=== PATIENT | male | born 1965 | race Caucasian/White ===

== ENCOUNTER 2020-10-27 08:43 | Outpatient (CLI) | payer BC, SELFPAY ==
[2020-10-27 09:21] LABS: Basophils Absolute Auto 0.1 K/mm3 (0.0-0.1); Basophils Percent Auto 1.2 % (0.2-1.2); Eosinophils Absolute Auto 0.1 K/mm3 (0-0.3); Eosinophils Percent Auto 2.2 % (0-4.4); Hematocrit 45.7 % (42.0-52.0); Hemoglobin 15.7 g/dL (14.0-18.0); Immature Granulocyte Absolute 0.02 K/mm3 (0.00-0.031); Immature Granulocyte Percent A 0.4 % (0-0.5); Lymphocytes Percent Auto 33.9 % (18.3-44.2); Mean Corpuscular HGB Conc 34.4 g/dl (32-36); Mean Corpuscular Hemoglobin 33.5 pg (26-34); Mean Corpuscular Volume 97.4 fl (80-100); Mean Platelet Volume 9.6 fl (7.4-10.4); Monocytes Absolute Auto 0.4 K/mm3 (0.1-0.6); Monocytes Percent Auto 8.2 % (2.6-8.5); Neutrophils Absolute Auto 2.7 K/mm3 (1.3-6.7); Neutrophils Percent Auto 54.1 % (45.5-73.1); Platelet Count Result 223 k/mm3 (150-375); Red Blood Count 4.69 M/mm3 (4.6-6.20); Red Cell Distribution Width 11.9 % (11.5-14.5)
[2020-10-27 09:25] LABS: Alanine Aminotransferase 40 U/L (4-50); Albumin Level 4.6 g/dL (3.5-5.1); Alkaline Phosphatase 75 U/L (38-126); Amylase 52 U/L (30-110); Anion Gap 7 mmol/L (8-16); Aspartate Amino Transferase 51 U/L (17-59); Bilirubin,Total 0.5 mg/dL (0.2-1.3); Blood Urea Nitrogen 11 mg/dL (9-20); Calcium 9.5 mg/dL (8.4-10.2); Carbon Dioxide 29 mmol/L (22-30); Chloride 105 mmol/L (98-107); Cholesterol 208 mg/dL (0-200); Estimated Glomerular Filt Rate > 60; Glucose 101 mg/dL (75-110); HDL Direct 47 mg/dL; Lipase 78 U/L (23-300); Potassium 4.3 mmol/L (3.4-5.0); Sodium 141 mmol/L (137-145); Triglycerides 270 mg/dL (<150)
[2020-10-27 09:36] LABS: LDL Cholesterol Direct 128 mg/dL
[2020-10-27 09:56] LABS: Prostate Specific Antigen 0.2 ng/mL (< OR = 4.0)
== END 2020-10-27 08:44 | disposition home or self-care (01) ==
LOC: ANHLAB 08:48
PROVIDERS: PCP Family Medicine; Visit Provider Physician Assistant Medical
DX: R10.13 Epigastric pain (principal); Z12.5 Encounter for screening for malignant neoplasm of prostate; Z13.220 Encounter for screening for lipoid disorders; Z80.0 Family history of malignant neoplasm of digestive organs
CPT/HCPCS: 36415; 80053; 80061; 82150; 83690; 84153; 85025; G0103

== ENCOUNTER → 2020-11-09 08:23 | Outpatient (CLI) | payer BC, SELFPAY ==
--- NOTE | ~2020-11-09 | US_ITS ---
EXAMINATION: US abdomen complete EXAM DATE: 11/09/2020 08:40 INDICATION: R10.13 - Epigastric pain. TECHNIQUE: Multiple grayscale and Doppler images of the complete abdomen were obtained (by a technolo gist who performed the scan) and subsequently reviewed. Comparison is made to prior examination from 09/09/2016. FINDINGS: The abdominal aorta is normal in caliber. Visualized portion IVC is patent. The pancreatic head a nd body are normal in appearance. The pancreatic tail is not visualized. There is echogenic liver parenchyma, hepatic steatosis. There are no focal liver lesions identified. There is no evidence of intrahepatic biliary duct dilation. Portal venous flow was seen in the he patopedal, normal direction and has normal Doppler waveform. Common bile duct measures 5 mm, which is normal. The gallbladder wall is normal in thickness, with ex pected amount of distention. No sonographic evidence of pericholecystic fluid. There is no cholelit hiases. Technologist performing exam reports patient did not demonstrate sonographic Maldonado's sign. Please note that this sign is less reliable in patients who have received pain medication. Right kidney: There is normal contour and echogenicity. It measures 11.8 x 5.3 x 5.2 centimeters. There are no focal renal lesions identified. There is no hydronephrosis. Left kidney: There is normal contour and echogenicity. It measures 10.8 x 6.2 x 5.4 centimeters. T here are no focal renal lesions identified. There is no hydronephrosis. The spleen measures 11.2 centimeters and is morphologically normal. IMPRESSION: 1. Hepatic steatosis. Reviewed, dictated and finalized at location A. E MAKER IMPRESSION: 1. Hepatic steatosis.
== END ==
PROVIDERS: PCP Family Medicine; Visit Provider Physician Assistant Medical
DX: R10.13 Epigastric pain (principal); K76.0 Fatty (change of) liver, not elsewhere classified
CPT/HCPCS: 76700

== ENCOUNTER 2020-12-19 16:31 | Outpatient (CLI) | payer BC, SELFPAY | END 2020-12-19 16:32 | disposition home or self-care (01) | LOC: ANHCOVIDVC 16:31 | PROVIDERS: PCP Family Medicine | DX: Z23 Encounter for immunization (principal) | CPT/HCPCS: 0001A; 91300 ==

== ENCOUNTER 2021-01-09 16:28 | Outpatient (CLI) | payer BC, SELFPAY | END 2021-01-09 16:29 | disposition home or self-care (01) | LOC: ANHCOVIDVC 16:28 | PROVIDERS: PCP Family Medicine | DX: Z23 Encounter for immunization (principal) | CPT/HCPCS: 0002A; 91300 ==

== ENCOUNTER → 2022-10-01 11:26 | Outpatient (CLI) | payer BC, SELFPAY ==
--- NOTE | ~2022-10-01 | XR_ITS ---
EXAMINATION: XR lumbar spine 6V w bending DATE: 10/01/2022 11:53 INDICATION: Other spondylosis with radiculopathy, lumbosacral region. TECHNIQUE: 8 views of lumbar spine standing including flexion and extension views were obtained. COMPARISON: Lumbar spine radiographs 12/30/2011 FINDINGS: There is 3 mm retrolisthesis of L2 on L3 and L3 on L4. Vertebral body heights are normal. T here is mildly decreased disc height at L2-L3 and L3-L4. There is no abnormal motion with flexion or extension. There is multilevel mild facet joint osteoarthritis. IMPRESSION: 1. Mild lumbar spondylosis. Reviewed, dictated and finalized at location A. [employer] PL[employer]ING MANAGER IMPRESSION: 1. Mild lumbar spondylosis.
== END ==
PROVIDERS: PCP Family Medicine; Visit Provider Family Medicine
DX: M47.27 Other spondylosis with radiculopathy, lumbosacral region (principal); M43.06 Spondylolysis, lumbar region
CPT/HCPCS: 72114

== ENCOUNTER → 2023-04-08 09:47 | Outpatient (CLI) | payer BC, SELFPAY ==
--- NOTE | ~2023-04-08 | MR_ITS ---
MRI of the lumbar spine Clinical History: Radiculopathy Technique: Axial T2-weighted images, and sagittal T1-weighted, T2-weighted, and and T2 fat-sat images were acquired. COMPARISON: 01/23/2012 Findings: No acute fracture seen. 2 mm retrolisthesis of L2 over L3 present. 4 mm retrolisthesis of L 3 over L4 present. There are reactive marrow signal changes due to degenerative disc change at the L2 -L3 and L3-L4 levels. At L1-L2, there is no disc bulge or herniation. There is mild facet joint hypertrophy. No spinal shauna l stenosis or neural foraminal narrowing. At L2-L3, there is minimal disc bulge and mild to moderate facet arthropathy. No central canal stenos is. There is mild bilateral neural foraminal narrowing. At L3-L4, there is disc bulge and mild to moderate facet arthropathy. There is no central canal steno sis. There is moderate to severe right neural foraminal narrowing, and moderate left neural foraminal narrowing. At L4-L5, there is mild diffuse disc bulge with mild facet arthropathy. No central canal stenosis. Th ere is severe bilateral neural foraminal narrowing. At L5-S1, there is minimal disc bulge. No central canal stenosis. There is moderate bilateral neural foraminal narrowing. Paravertebral soft tissues are unremarkable. Impression: Moderate degenerative spondylosis, with multilevel neural foraminal narrowing, as detailed above. 2 mm retrolisthesis of L2 over L3. 4 mm retrolisthesis of L3 over L4. Reviewed, dictated and finalized at [facility]. Impression: Moderate degenerative spondylosis, with multilevel neural foraminal narrowing, as detailed above. 2 mm retrolisthesis of L2 over L3. 4 mm retrolisthesis of L3 over L4.
== END ==
PROVIDERS: PCP Family Medicine
DX: M47.27 Other spondylosis with radiculopathy, lumbosacral region (principal); M43.16 Spondylolisthesis, lumbar region
CPT/HCPCS: 72148

== ENCOUNTER → 2023-07-06 07:07 | Outpatient (CLI) | payer BC, SELFPAY ==
--- NOTE | ~2023-07-06 | MR_ITS ---
EXAMINATION: MR cervical spine wo con DATE: 07/06/2023 07:45 INDICATION: Cervical radiculopathy. Neck pain. Bilateral shoulder numbness. TECHNIQUE: Magnetic resonance imaging (MRI) of the cervical spine was performed without intravenous c ontrast. COMPARISON: None FINDINGS: There is 2 mm retrolisthesis of C3 on C4. There is mild kyphosis of cervical spine. There i s moderately decreased disc height at C3-C4, mildly decreased disc height at C5-C6, and moderately de creased disc height at C6-C7. The spinal cord signal intensity is normal. The following disc levels a re specifically discussed: C2-C3: There is a central protrusion. There is no uncovertebral joint osteoarthritis. There is mild r ight and severe left facet joint osteoarthritis. There is mild left neural foraminal stenosis. There is no central canal stenosis. C3-C4: The disc is bulging. There is severe bilateral uncovertebral joint osteoarthritis. There is mo derate bilateral facet joint osteoarthritis. There is mild right and moderate left neural foraminal s tenosis. There is mild central canal stenosis. C4-C5: The disc does not extend beyond the endplate margin. There is mild bilateral uncovertebral kristina nt osteoarthritis. There is severe left facet joint osteoarthritis. There is mild left neural foramin al stenosis. There is no central canal stenosis. C5-C6: The disc is bulging. There is severe bilateral uncovertebral joint osteoarthritis. There is no facet joint osteoarthritis. There is mild bilateral neural foraminal stenosis. There is mild central canal stenosis. C6-C7: The disc is bulging. There is severe bilateral uncovertebral joint osteoarthritis. There is mi ld bilateral facet joint osteoarthritis. There is mild bilateral neural foraminal stenosis. There is mild central canal stenosis. C7-T1: The disc does not extend beyond the endplate margin. There is no uncovertebral joint osteoarth ritis. There is mild bilateral facet joint osteoarthritis. There is mild bilateral neural foraminal s tenosis. There is no central canal stenosis. IMPRESSION: 1. Moderate cervical spondylosis. Reviewed, dictated and finalized at location E.
== END ==
DX: M47.22 Other spondylosis with radiculopathy, cervical region (principal)
CPT/HCPCS: 72141